=== PATIENT | female | born 1950 | race Caucasian/White ===

== ENCOUNTER 2016-10-06 07:14 | Day surgery (SDC) | payer OTHER ==
--- NOTE | ~2016-10-06 | EGD ---
EGD REPORT [facility] [address] [id number] NAME: MERCEDEZ WIGGINS : [birth year] STATUS : REG [facility]#: [id number] AGE: 66 ADM/REG DATE : 10/06/16 MR#: [id number] REPORT SERV DATE: 10/06/16 DICTATED BY: DATE: REPORT STATUS : Draft TRANSCRIBED BY: [employer] DATE: 10/06/16 [facility] Patient Name: Mercedez Wiggins Date of : 1950 Attending MD: JOHN ANAYA MD Procedure Date No Time: 10/06/2016 Procedure: Upper GI endoscopy Indications: Surveillance for malignancy due to personal history of Alvraez's esophagus Referring MD: CRISTINE DENISE MD Medicines: Monitored Anesthesia Care Complications: No immediate complications. Procedure: Pre-Anesthesia Assessment: - ASA Grade Assessment: III - A patient with severe systemic disease. After obtaining informed consent, the endoscope was passed under direct vision. Throughout the procedure, the patient's blood pressure, pulse, and oxygen saturations were monitored continuously. The GIF [id number] was introduced through the mouth, and advanced to the second part of duodenum. The upper GI endoscopy was accomplished without difficulty. The patient tolerated the procedure well. Findings: An 8 cm hiatus hernia was present. A gaping lower esophageal sphincter was found. The esophagus and gastroesophageal junction were examined with white light and narrow band imaging (NBI) from a forward view and retroflexed position. There were esophageal mucosal changes classified as Alvarez's stage C2-M3 per [place] criteria, extending from the upper extent of the gastric folds which were at 32 cm from the incisors to the Z-line which was at 29 cm from the incisors. No visible abnormalities were present. The maximum longitudinal extent of these esophageal mucosal changes was 3 cm in length. Mucosa was biopsied with a cold forceps for histology in a targeted manner and in 4 quadrants at intervals of 2 cm. A total of 3 specimen bottles were sent to pathology. No other significant abnormalities were identified in a careful examination of the esophagus. Some islands of reepithelialization were seen near the GEJ. Given the patient has no history of dysplasia, and did not wish to pursue ablation, this was not performed. There is no endoscopic evidence of areas of erosion, ulcerations or varices in the entire esophagus. The entire examined stomach was normal. There is no endoscopic evidence of mucosal abnormalities, ulceration or EGD REPORT [address] [place]. [address] NAME: MERCEDEZ WIGGINS : [birth year] STATUS : REG [facility]#: [id number] AGE: 66 ADM/REG DATE : 10/06/16 MR#: [id number] REPORT SERV DATE: 10/06/16 DICTATED BY: DATE: REPORT STATUS : Draft TRANSCRIBED BY: [employer] DATE: 10/06/16 varices in the entire examined stomach. The examined duodenum was normal. There is no endoscopic evidence of bleeding, inflammation, mucosal abnormalities or ulceration in the entire examined duodenum. The cardia and gastric fundus were normal on retroflexion. Impression: - Hiatus hernia. - Gaping lower esophageal sphincter. - Esophageal mucosal changes classified as Alvarez's stage C2-M3 per [place] criteria. Biopsied. - Normal stomach. - Normal examined duodenum. Recommendation: - Patient has a contact number available for emergencies. The signs and symptoms of potential delayed complications were discussed with the patient. Return to normal activities tomorrow. Written discharge instructions were provided to the patient. - Return to previous diet. - Discharge patient to home. - Continue present medications. - Await pathology results. - Repeat the upper endoscopy in 3 years for surveillance. - Return to my office in 6 months. Procedure Code(s): --- Professional --- 48978, Esophagogastroduodenoscopy, flexible, transoral; with biopsy, single or multiple Diagnosis Code(s): --- Professional --- K44.9, Diaphragmatic hernia without obstruction or gangrene K22.8, Other specified diseases of esophagus K22.70, Alvarez's esophagus without dysplasia CPT copyright 2013 [employer]. All rights reserved. The codes documented in this report are preliminary and upon stabilizer operator review may be revised to meet current compliance requirements. JOHN ANAYA MD 10/06/2016 9:04 AM This report has been signed electronically. Number of Addenda: 0 EGD REPORT [facility] [address] [address] NAME: MERCEDEZ WIGGINS TERRY : [birth year] [place]US : [place] [facility] [place] [id number] AGE: 66 ADM/REG DATE : 10/06/16 MR#: [id number] REPORT SERV DATE: 10/06/16 DICTATED BY: DATE: REPORT STATUS : Draft TRANSCRIBED BY: ADAN BRIDGES DATE: 10/06/16 Note Initiated On: 10/06/2016 8:43 AM Scope Withdrawal Time 0 hours 0 minutes 0 seconds [address] [id number]
[~2016-10-06 07:14] MED LIST: ADVIL PO; AMIT25 PO; ASAB PO; BIOTIN5 MG PO; CALAN120 MG PO; COZAAR100 MG PO; CYMBALTA30 PO; IRON OTC PO; LISINOPRIL40 MG PO; MAGOX4 PO; MEDS; P5 PO; PRILOSEC40 MG PO; PYRID180 PO; PYRID60 PO; TUMERIC CURCUMIN; V120 PO; VERELAN120 MG PO; VITAMIN B-122500 MCG SL; VITAMIN D31000 UNIT PO
== END 2016-10-06 23:59 | disposition home health service (06) ==
LOC: DMU 07:14
PROVIDERS: Internal Medicine Gastroenterology
PROC: 0DB48ZX Excision of Esophagogastric Junction, Via Natural or Artificial Opening Endoscopic, Diagnostic (ICD-10-PCS; principal; 2016-10-06 10:00)
DX: Z13.810 Encounter for screening for upper gastrointestinal disorder (principal); K44.9 Diaphragmatic hernia without obstruction or gangrene; K22.8 Other specified diseases of esophagus; I10 Essential (primary) hypertension; K21.9 Gastro-esophageal reflux disease without esophagitis; Z79.82 Long term (current) use of aspirin; Z79.899 Other long term (current) drug therapy; Z90.49 Acquired absence of other specified parts of digestive tract; Z90.710 Acquired absence of both cervix and uterus; Z98.890 Other specified postprocedural states
CPT/HCPCS: 88305